=== PATIENT | female | born 1980 | race Caucasian/White ===

== ENCOUNTER 2016-11-01 08:09 | Inpatient (IN) | payer OTHER ==
--- NOTE | ~2016-11-01 | PN ---
Unit #: [id number] #: [id number] Patient: ARETHA HUMPHREY [id number] [facility] [address] [place] [address] [id number] I MR#: [id number] NAME: ARETHA HUMPHREY. ROOM: P176 Age: 36 Sex: F Admission Date: 11/01/2016 : 1980 Attending Physician: Roman Weldon M.D. Admitting Physician: Roman Weldon M.D. Primary Care Physician: Primary Care Physician Amanda JOSE PROGRESS NOTES DATE November 02, 2016 DISCUSSION Ms. Humphrey is a 36-year-old white female, with mood disorder and substance abuse, who was seen today and chart was reviewed and the case was discussed with the staff. She was seen to be anxious, withdrawn, depressed, and remained seclusive to herself. Meanwhile, she has been cooperative with the treatment recommendations and she has been taking the medications and tolerating them fairly well with no reported side effects. MENTAL STATUS EXAMINATION Middle-aged white female, who was casually dressed with fair personal hygiene and appears to be in no acute distress or discomfort. The patient was awake and alert with intact orientation. Her mood was anxious with a congruent affect. She reports having suicidal ideation but denies any homicidal ideations. Her insight and judgment remain slightly impaired. TREATMENT PLAN 1. We will continue her on her current medications and treatment protocol, and will monitor her response to the medications, and make further adjustments as needed. 2. We will continue to followup. Dictated by... Malorie Barcenas/todd TD: 11/03/2016 06:34 JOB #: [id number] Unit #: [id number] #: [id number] Patient: ARETHA HUMPHREY PEAJEFF PROGRESS NOTES Page 1 of 1 X Roman Weldon MD PROGRESS NOTE
--- NOTE | ~2016-11-01 | PN ---
Unit #: [id number] #: [id number] Patient: ARETHA HUMPHREY [id number] [facility] [address] [place] [address] [id number] I MR#: [id number] NAME: ARETHA HUMPHREY. ROOM: P176 Age: 36 Sex: F Admission Date: 11/01/2016 : 1980 Attending Physician: Roman Weldon M.D. Admitting Physician: Roman Weldon M.D. Primary Care Physician: Primary Care Physician Amanda TORRE NOTES DATE November 03, 2016 DISCUSSION Ms. Humphrey is a 36-year-old white female, who was seen today and chart was reviewed and the case was discussed with the staff. She was lying in the bed and was in distress and discomfort, unkempt, disheveled, and hardly able to carry on any meaningful conversation but she stated that she is starting to feel somewhat better; however, does appear to be actively detoxing. Meanwhile, she has been taking the medications and tolerating them fairly well with no reported side effects. MENTAL STATUS EXAMINATION Middle-aged white female, who was casually dressed with fair personal hygiene and appears to be in no acute distress or discomfort. She was awake and alert on interaction with intact orientation. Her mood was anxious with a congruent affect. She denies any suicidal or homicidal ideations. Her insight and judgment remain slightly impaired. TREATMENT PLAN 1. We will continue her on her current medications and treatment protocol, and will monitor her response to the medications, and make further adjustments as needed. 2. We will continue to followup. Dictated by... Malorie Barcenas/todd TD: 11/03/2016 12:48 JOB #: [id number] Unit #: [id number] #: [id number] Patient: ARETHA HUMPHREY DAMON PROGRESS NOTES Page 1 of 1 X Roman Weldon MD PROGRESS NOTE
--- NOTE | ~2016-11-01 | PN ---
Unit #: [id number] #: [id number] Patient: ARETHA HUMPHREY [id number] [facility] [address] [place] [address] [id number] I MR#: [id number] NAME: ARETHA HUMPHREY. ROOM: P176 Age: 36 Sex: F Admission Date: 11/01/2016 : 1980 Attending Physician: Roman Weldon M.D. Admitting Physician: Roman Weldon M.D. Primary Care Physician: Primary Care Physician Amanda JOSE PROGRESS NOTES DATE OF SERVICE 11/05/2016 DISCUSSION Ms. Humphrey is a 36-year-old white female who was seen today. Chart was reviewed and case was discussed with the staff. She appears to be doing better and reported that she fears that she is coming out of the detox. Meanwhile, she has been cooperative with the treatment recommendations and has been taking the medications and tolerating them fairly well with no reported side effects. MENTAL STATUS EXAMINATION Young white female who is casually dressed with fair personal hygiene, appears to be in no acute distress or discomfort. She was awake and alert on interaction with intact orientation. Her mood is anxious with a congruent affect. She denies any suicidal or homicidal ideations, but her insight and judgment remain slightly impaired. TREATMENT PLAN 1. We will continue her on her current medications and treatment protocol. We will monitor her response to the medications and make further adjustments as needed. 2. We will continue to follow up. Dictated by... Roman Weldon M.D. IAA/alisong TD: 11/05/2016 10:12 JOB #: [id number] Unit #: [id number] #: [id number] Patient: ARETHA HUMPHREY PROGRESS NOTES Page 1 of 1 X Roman Weldon MD X PROGRESS NOTE
--- NOTE | ~2016-11-01 | HP ---
Unit #: [id number] #: [id number] Patient: FREDA HUMPHREY [id number] [place] [address] [id number] I MR#: [id number] NAME: FREDA HUMPHREY. ROOM: P176 Age: 36 Sex: F Admission Date: 11/01/2016 : 1980 Attending Physician: Roman Weldon M.D. Admitting Physician: Roman Weldon M.D. Primary Care Physician: Primary Care Physician No HISTORY AND PHYSICAL HISTORY OF PRESENT ILLNESS Freda is a 36 year old admitted to [facility] because of her polysubstance abuse which includes IV heroin. PAST MEDICAL HISTORY 1. Long history of opioid abuse to include IV heroin 2. Hepatitis C. 3. 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 ALLERGIES No known drug allergies. SOCIAL HISTORY Smokes one-half pack per day. Denies alcohol. Admits to a long history of illicit substance abuse to include IV heroin. FAMILY HISTORY Medically noncontributory. REVIEW OF SYSTEMS CONSTITUTIONAL: No fever or chills. HEENT: Denies any sore throat, ear pain or runny nose. CARDIOVASCULAR: Denies chest pain, irregular heart rhythm or palpitations. CHEST: Denies shortness of breath or cough. No hemoptysis. GASTROINTESTINAL: Denies nausea, vomiting, diarrhea or chronic constipation. ENDOCRINE: Denies history of increased thirst or urination. No recent significant weight loss or gain. GENITOURINARY: Denies dysuria, frequency, or hematuria. SKIN: Denies any rashes. HEMATOLOGIC: Denies history of increased bleeding or bruising. MUSCULOSKELETAL: Denies any hot, swollen joints. No generalized muscle pain. NEUROLOGIC: Denies problems with vision or speech. No frequent, severe headaches. No numbness, tingling or weakness in any extremities. Denies loss of bladder or bowel control. CURRENT MEDICATIONS Detox protocol Unit #: [id number] #: [id number] Patient: FREDA HUMPHREY PHYSICAL EXAMINATION GENERAL: Alert, thin, in no apparent distress. VITAL SIGNS: Blood pressure 117/74, heart rate 80, respirations 16, temperature 98.6. WEIGHT: 125 pounds. HEIGHT: 4'11". SKIN: Warm and dry without rash or lesion. HEENT: Normocephalic. TMs not viewed. Oral and nasal passages clear. Conjunctivae clear. Pupils equal, round and reactive to light and accommodation. Extraocular movements intact. NECK: Supple without lymphadenopathy or thyromegaly. HEART: Rate and rhythm is regular with a one to two over six diastolic murmur. LUNGS: Clear. ABDOMEN: Soft, nontender. : Not done. EXTREMITIES: No evidence of cyanosis, clubbing or edema. Moves all extremities without focal deficit. NEUROLOGICAL: Grossly within normal limits. Cranial Nerves: II: Visual peña are intact. III, IV AND : Extraocular movements are intact. Pupils are equal, round and reactive to light. V: Facial sensation is grossly normal. VII: Facial movements and expression are normal. VIII: Auditory acuity grossly intact. IX, X: Uvula is midline. Phonation is normal. XI: Patient shrugs shoulders and turns head normally. XII: Tongue protrudes in the midline. Sensory and Motor Function: Sensory and motor sensation is grossly normal. Motor: moves all extremities well. Coordination: Gait is normal. Deep Tendon Reflexes: Intact. IMPRESSION 1. Psychiatric admission. 2. Long history of opioid abuse to include IV heroin. 3. Hepatitis C. 4. History of hepatitis B. 5. The patient reports aortic and pulmonic valve replaced at age [age] (?). RECOMMENDATIONS PSYCHIATRIC: Per psychiatrist. MEDICAL: I see no contraindications to participating in facility's activities. MEDICAL PROGNOSIS Good. MEDICAL CONDITION Stable. Dictated by... Ayesha Yu P.A.-C. for Gloria Galaviz M.D. Unit #: [id number] #: [id number] Patient: FREDA HUMPHREY JOSE/nikky TD: 11/01/2016 20:37 JOB #: [id number] HISTORY AND PHYSICAL X Ayesha Yu HISTORY AND PHYSICAL
--- NOTE | ~2016-11-01 | PA ---
Unit #: [id number] #: [id number] Patient: ARETHA HUMPHREY [id number] [facility] [address] [place] [address] [id number] I MR#: [id number] NAME: ARETHA HUMPHREY ROOM: P176 Age: 36 Sex: F Admission Date: 11/01/2016 : 1980 Date of Assessment: 11/01/2016 Attending Physician: Roman Weldon M.D. Admitting Physician: Roman Weldon M.D. Primary Care Physician: Primary Care Physician No PSYCHIATRIC ASSESSMENT DATE OF SERVICE 11/01/2016. IDENTIFYING DATA Ms. Humphrey is a 36-year-old single white female who is a resident of [place], [place] and was self-referred to the hospital on a voluntary basis. CHIEF COMPLAINT "I had 11-month sober and I relapsed on heroin IV." HISTORY OF PRESENT ILLNESS Ms. Humphrey is a 36-year-old white female with history of substance abuse and dependence, who was self-referred to the hospital. Upon presentation, she stated that she saw her consular officer last month and she had 11 month sobriety and then she ended up relapsing and "I told him I f-word'd up and he told me to come here. I've been having suicidal thoughts because of my relapse. I need to get my thoughts together. I know I am f-word'd up. I know it is me and not anyone else as I talked him a program. I have been using the needle for 1 month strength. I have been thinking I need to get help. I kill myself." She does report increasing depression, anxiety, agitation, irritability, feelings of hopelessness and helplessness, and suicidal ideation and reports having suicidal thoughts over the last month and denies any homicidal ideation and reports she currently has been having suicidal ideations, thoughts of taking an overdose on heroin and was seen to be danger to self and was unable to contract for safety and as such, recommendation for inpatient level of care was recommended. SUBSTANCE ABUSE HISTORY The patient has history of experimentation with alcohol, cannabis, opioids, and amphetamines, however, opioids currently appear to be her drug of choice as she reports that she has been using 0.5 to 1 g of heroin intravenously. PAST PSYCHIATRIC HISTORY The patient has had history of chemical dependency treatment at [facility] and review of the medical records indicate that currently she is not active in any treatment program, is not seeing a psychiatrist, and not taking any psychotropic medications. PAST MEDICAL HISTORY Unit #: [id number] #: [id number] Patient: ARETHA HUMPHREY Significant for hepatitis B and hepatitis C. ALLERGIES No known medication allergies. CURRENT MEDICATIONS None. PERSONAL AND SOCIAL HISTORY A 36-year-old white female who reports that she is single, unemployed, and lives at home with her mother and has fairly decent social support system. She has ongoing legal issues and is currently on probation. MENTAL STATUS EXAMINATION Young white female who was casually dressed with fair personal hygiene, appears to be in no acute distress or discomfort. She was awake and alert on interaction with intact orientation to time, place, and person. Her mood was anxious and depressed with a congruent affect. Her speech was slow and goal directed. Her thought processes were disorganized with some looseness of associations and flight of ideas and suicidal ideations. Her insight and judgment remain significantly impaired. DIAGNOSTIC IMPRESSION Psychiatric: Opioid dependence, moderate and acute withdrawals; opioid-induced mood disorder. Medical: Hepatitis B and hepatitis C. Stressors: Moderate psychosocial stressors. TREATMENT PLAN 1. The patient has presented with a history of mood disorder and substance abuse, and has been decompensating and will need inpatient hospitalization for safety and stabilization. We will start her on detox protocol. We will closely monitor for any worsening withdrawal symptoms. 2. Supportive therapy was provided to the patient. 3. Safe, structured, and nourishing environment will be provided. ESTIMATED LENGTH OF STAY 5 to 7 days. ABILITY TO HELP SELF Limited. WILLINGNESS TO HELP SELF The patient appears to be willing to help self. STRENGTHS 1. Communicative. 2. Cooperative. PROBLEMS 1. Chronic chemical dependency. 2. Chronic dysphoric symptoms. 3. Poor social support system. DISCHARGE CRITERIA This will be contingent upon the patient's ability to go through detox without having any significant withdrawal symptoms as well as her ability to stay safe to herself, particularly after discharge from the hospital. Unit #: [id number] #: [id number] Patient: ARETHA HUMPHREY Dictated by... Malorie Barcneas/helena TD: 11/02/2016 22:58 JOB #: [id number] PSYCHIATRIC ASSESSMENT Page 1 of 1 X Roman Weldon MD PSYCHIATRIC ASSESSMENT
--- NOTE | ~2016-11-01 | PN ---
Unit #: [id number] #: [id number] Patient: ARETHA HUMPHREY [id number] [facility] [address] [place] [address] [id number] MR#: [id number] NAME: ARETHA HUMPHREY. ROOM: P176 Age: 36 Sex: F Admission Date: 11/01/2016 : 1980 Attending Physician: Roman Weldon M.D. Admitting Physician: Roman Weldon M.D. Primary Care Physician: Primary Care Physician Amanda TORRE NOTES DATE November 03, 2016 DISCUSSION Ms. Humphrey is a 36-year-old white female, with substance abuse and mood disorder, who was seen today and chart was reviewed and the case was discussed with the staff, who reports that the patient has been detoxing hard. She has been anxious, restless, unkempt, disheveled, and seclusive to herself, and has not been able to come out of her bed, and has been describing herself to being in discomfort, neither has she been able to take care of her personal hygiene. She has not shown any agitation or aggression and she has been taking medications and tolerating them fairly well MENTAL STATUS EXAMINATION Young white female, who was casually dressed with fair personal hygiene and appears to be in no acute distress or discomfort. The patient was awake and alert on interaction with intact orientation. Her mood is anxious with a congruent affect. She denies any suicidal or homicidal ideations. Her insight and judgment remain slightly impaired. TREATMENT PLAN 1. We will continue her on her current medications and treatment protocol, and will monitor her response, and make further adjustments as needed. 2. We will continue to followup. Dictated by... Malorie Barcenas/todd TD: 11/05/2016 06:30 JOB #: [id number] Unit #: [id number] #: [id number] Patient: ARETHA HUMPHREY DAMON PROGRESS NOTES Page 1 of 1 X Roman Weldon MD PROGRESS NOTE
--- NOTE | ~2016-11-01 | DS ---
Unit #: [id number] #: [id number] [facility]: [facility] [id number] [facility] [address] [place] [address] [id number] I MR#: [id number] NAME: ARETHA HUMPHREY. ROOM: P176 Age: 36 Sex: F Admission Date: 11/01/2016 : 1980 Discharge Date: 11/06/2016 Attending Physician: Roman Weldon M.D. DISCHARGE SUMMARY IDENTIFYING DATA Ms. Humphrey is a 36-year-old single white female who is a resident of [place], [place] and was self-referred to the hospital on a voluntary basis. DISCHARGE DIAGNOSES Psychiatric: Opioid dependence, moderate and acute withdrawals; opioid-induced mood disorder. Medical: Hepatitis B, hepatitis C. Stressors: Moderate psychosocial stressors. HISTORY OF PRESENT ILLNESS Please see initial psychiatric evaluation for details. PAST PSYCHIATRIC HISTORY Please see initial psychiatric evaluation for details. PAST MEDICAL HISTORY Please see initial psychiatric evaluation for details. HOSPITAL COURSE The patient was admitted to the adult chemical dependency unit at [facility] mahnaz Beltrán and was oriented to the hospital environment. Routine p.r.n. medications were initiated, and she was started on the detox protocol and was closely monitored. She had a rather complicated course as she was in her bed most of the first few days and was actively vomiting and was unkempt, disheveled, and unable to take care of herself or perform activities of daily living or even feed herself or come out and go to the day room for meals and as such, medications were maintained and was given on a regular basis, but she slowly started coming out and was seen to be doing much better and was cooperative with treatment recommendations, and as such, it was decided that she will be discharged home and will continue treatment on an outpatient basis. DISCHARGE MEDICATIONS None. DISCHARGE CONDITION Stable. PROGNOSIS Fair. Unit #: [id number] #: [id number] Patient: ARETHA HUMPHREY Dictated by... Malorie Barcenas/perezl TD: 11/06/2016 10:09 JOB #: [id number] DISCHARGE SUMMARY Page 1 of 1 X Roman Weldon MD DISCHARGE SUMMARY
--- NOTE | ~2016-11-01 | TN ---
Unit #: [id number] #: [id number] Patient: ARETHA HUMPHREY [id number] [place] [address] [id number] I MR#: [id number] NAME: ARETHA HUMPHREY. ROOM: P176 Age: 36 Sex: F Admission Date: 11/01/2016 : 1980 Discharge Date: 11/06/2016 Attending Physician: Roman Weldon M.D. Primary Care Physician: Primary Care Physician No LOC TRANSFER NOTE DATE OF SERVICE: 11/09/2016 HISTORY OF PRESENT ILLNESS Ms. Humphrey is a 36-year-old single white female with history of opioid dependence and mood disorder, who has stepped down to the outpatient treatment program from the adult inpatient chemical dependency unit at [facility], where she was hospitalized under my care from 11/01/2016 to 11/06/2016, and was medically detox from heroin, which has been her drug of choice and she was sent home and asked to come to the outpatient treatment program. The patient reports she got out of the hospital and went home, has been staying with her mother, and has been safe and sober, but she reports that she still has been struggling with the craving and constantly has been having cravings, but she has not given in. She also reports doing fairly well on her mood and smiling, and had a positive body language, and denies being depressed or having any suicidal ideations. SUBSTANCE ABUSE HISTORY The patient reports opiates particularly heroin to be her drug of choice and she has been clean as of 11/01/2016. PAST PSYCHIATRIC HISTORY The patient has had history of inpatient and outpatient psychiatric and chemical dependency treatment, [facility], and currently, she is not taking any psychotropic medications. PAST MEDICAL HISTORY No acute or chronic medical illnesses. ALLERGIES No known medication allergies. CURRENT MEDICATIONS None. PERSONAL AND SOCIAL HISTORY A 36-year-old single white female who reports that she lives at home with her mother and has fairly decent social support system. MENTAL STATUS EXAMINATION Young white female who was casually dressed with a fair personal hygiene, appears to be in no acute distress or discomfort. She was awake and alert on interaction with intact orientation. Her mood was anxious and depressed with a congruent affect. Her speech is slow and restricted in Unit #: [id number] #: [id number] Patient: ARETHA HUMPHREY. She denies any suicidal or homicidal ideations, and also denies any auditory or visual hallucinations. Her insight and judgment remain slightly impaired. DIAGNOSTIC IMPRESSION Psychiatric: Opioid dependence, moderate, opioid-induced mood disorder. Medical: None. Stressors: Moderate psychosocial stressors. TREATMENT PLAN 1. The patient has presented with a history of substance abuse and mood disorder and has been decompensating. We will recommend enrolling her into the outpatient treatment program and encouraged her to participate in therapy groups and to practice sobriety. 2. Supportive therapy was provided to the patient. ESTIMATED LENGTH OF STAY 14 to 21 days. ABILITY TO HELP SELF Limited. WILLINGNESS TO HELP SELF The patient appears to be willing to help self. STRENGTHS 1. Communicative. 2. Cooperative. PROBLEM LIST 1. Chronic dysphoric symptoms. 2. Chronic chemical dependency. 3. Poor social support system. DISCHARGE CRITERIA This will be contingent upon the patient's ability to show resolution of her depression and anxiety and her ability to stay safe and sober, particularly after discharge from the program. Dictated by... Roman Weldon M.D. AB/helena TD: 11/10/2016 03:13 JOB #: [id number] LOC TRANSFER NOTE Page 1 of 1 X Roman Weldon MD X LOC TRANSFER NOTE
[~2016-11-01 08:09] MED LIST: DOXYCYCLINE HY100 M1 PO; NO MEDICATIONS; PHENERGAN/CODEIN5 ML PO; TESSALON200 MG PO; ULTRAM PO
[2016-11-02 09:42] LABS: BASOPHIL# 0.1 X10e3 (0-0.3); BASOPHIL% 1.2 % (0-2.5); EOSINOPHIL# 0.2 X10e3 (0-0.7); EOSINOPHIL% 3.2 % (0.0-7.0); HEMATOCRIT 39.3 % (35.0-45.0); LYMPHOCYTE# 1.7 X10e3 (1.0-3.5); LYMPHOCYTE% 34.3 % (17.0-45.0); MEAN CELL VOLUME 89.7 FL (83-96); MEAN CORPUSCULAR HEMOGLOBIN 29.6 PG (28-34); MEAN PLATELET VOLUME 8.7 FL (6.5-11.5); MONOCYTE# 0.7 X10e3 (0-1.0); MONOCYTE% 13.8 % (3.0-12.0); NEUTROPHIL# 2.4 X10e3 (1.5-7.1); NEUTROPHIL% 47.5 % (40-75); PLATELET COUNT 266 X10e3 (140-420); RED BLOOD COUNT 4.38 X10e (3.90-5.30); RED CELL DISTRIBUTION WIDTH 13.7 % (11.0-15.5)
[2016-11-02 09:44] LABS: DIFF IND NO
[2016-11-02 09:49] LABS: URINE APPEARANCE CLEAR; URINE BILIRUBIN NEG (NEG); URINE BLOOD NEG (NEG); URINE COLOR YELLOW; URINE GLUCOSE NEG (NEG); URINE KETONE NEG (NEG); URINE LEUKOCYTE ESTERASE NEG (NEG); URINE NITRATE NEG (NEG); URINE PROTEIN NEG (NEG); URINE SPECIFIC GRAVITY 1.021 (1.003-1.035)
[2016-11-02 09:58] LABS: AMPHETAMINE POS (NEG); BARBITURATES NEG (NEG); BENZODIAZEPINES NEG (NEG); COCAINE NEG (NEG); MARIJUANA NEG (NEG); OPIATES POS (NEG); TRICYCLIC ANTIDEPRESSANTS NEG (NEG); U METHADONE NEG (NEG)
[2016-11-02 10:23] LABS: THYROID STIMULATING HORMONE 0.68 uIU/ml (0.34-5.60)
[2016-11-02 10:30] LABS: FREE THYROXIN (T4) 0.92 ng/dL (0.58-1.64)
[2016-11-02 10:54] LABS: ALKALINE PHOSPHATASE 85 U/L (32-92); ALT (SGPT) 128 U/L (10-40); AST (SGOT) 89 U/L (10-42); BILIRUBIN,TOTAL 0.4 mg/dL (0.2-2.0); BLOOD UREA NITROGEN 12 mg/dL (9-23); BUN/CREATININE RATIO 13.33; CALCIUM SERUM 8.8 mg/dL (8.4-10.2); CARBON DIOXIDE 25 mmol/L (22-31); CHLORIDE 105 mmol/L (100-111); CREATININE SERUM 0.9 mg/dL (0.6-1.4); GLOM FILT RATE Estimated ABOVE60 mL/min (>60); GLUCOSE FASTING 81 mg/dL (70-110); POTASSIUM 4.3 mmol/L (3.5-5.1); PROTEIN TOTAL SERUM 6.4 g/dL (6.0-8.3); SODIUM 136 mmol/L (135-145)
[2016-11-17] MEDS ORDERED: [UNRECOGNIZED DRUG - REMARK] (20:23)
== END 2016-11-06 10:00 | disposition home or self-care (01) | DRG 897 ==
LOC: POF 08:09 → P1E 11:09
PROVIDERS: Psychiatry & Neurology Psychiatry
DX: F11.23 Opioid dependence with withdrawal (principal); F11.24 Opioid dependence with opioid-induced mood disorder; F17.210 Nicotine dependence, cigarettes, uncomplicated; Z86.19 Personal history of other infectious and parasitic diseases
CPT/HCPCS: 80053; 80307; 81003; 84439; 84443; 84703; 85025; 86592

== ENCOUNTER 2016-11-17 20:49 | Emergency (ER) | payer OTHER ==
--- NOTE | ~2016-11-17 | CR230 ---
[facility] A Service of [facility] & [facility] RADIOLOGY TEXT RESULTS PATIENT: ARETHA HUMPHREY LOCATION: SED : [birth year] UNIT #: [id number] AGE: [address]: Juan Manuel Panda DO SEX: F ORDER DR: [id number] [address] [address] [id number] MR#: [id number] Acc #: [id number] NAME: ARETHA HUMPHREY : 1980 SEX: F STUDY DATE/TIME: 11/17/2016 21:03 UNIT: SED ROOM: STUDY DESCRIPTION: CR Shoulder Min 2 View Rt Attending Physician: Juan Manuel Panda D.O. Ordering Physician: Juan Manuel Panda D.O. Primary Care Physician: Primary Care Physician No MEDICAL IMAGING REPORT This report is preliminary unless electronic signature is present. EXAM Right shoulder radiograph. INDICATIONS Pain and swelling. FINDINGS 3 views of the right shoulder without comparison. There is no acute fracture or dislocation. Alignment is anatomic. IMPRESSION Negative right shoulder. Dictated by... Brennen Champagne M.D. THIS IS AN ELECTRONICALLY VERIFIED REPORT Brennen Champagne M.D. at 11/18/2016 3:26 PM Vlad/santana TD: 11/18/2016 00:24 JOB #: [id number] MEDICAL IMAGING REPORT Page 1 of 1
--- NOTE | ~2016-11-17 | US139 ---
[facility] A Service [facility] RADIOLOGY TEXT RESULTS PATIENT: ARETHA HUMPHREY LOCATION: SED : [birth year] UNIT #: [id number] AGE: [address]: Juan Manuel Panda DO SEX: F ORDER DR: [id number] [place] [id number] E MR#: [id number] Acc #: [id number] NAME: ARETHA HUMPHREY : 1980 SEX: F STUDY DATE/TIME: 11/17/2016 21:17 UNIT: SED ROOM: STUDY DESCRIPTION: US UE Veins Complete Mauro Stdy Attending Physician: Juan Manuel Panda D.O. Ordering Physician: Juan Manuel Panda D.O. Primary Care Physician: Primary Care Physician No MEDICAL IMAGING REPORT This report is preliminary unless electronic signature is present. EXAM Bilateral upper extremity venous ultrasound HISTORY Bilateral upper extremity pain for 3 days. No injury. TECHNIQUE Venous ultrasound examination of both upper extremities was performed using grayscale, spectral Doppler and color flow Doppler imaging. FINDINGS The examination is negative. There is no evidence of deep venous thrombus within the bilateral internal jugular veins, subclavian veins, axillary veins or brachial veins. No superficial venous thrombus is seen within the cephalic or basilic veins. IMPRESSION Negative examination. No evidence of upper extremity venous thrombosis. Dictated by... Tre Alcantar M.D. THIS IS AN ELECTRONICALLY VERIFIED REPORT Tre Alcantar M.D. at 11/18/2016 2:30 PM DFL/psc TD: 11/18/2016 00:47 JOB #: [id number] MEDICAL IMAGING REPORT [facility] A Service [facility] RADIOLOGY TEXT RESULTS PATIENT: ARETHA HUMPHREY LOCATION: SED : [birth year] UNIT #: [id number] AGE: [address]: Juan Manuel Panda DO SEX: F ORDER DR: Page 1 of 1
--- NOTE | ~2016-11-17 | CR139 ---
[facility]. [facility] A Service of [facility] & [facility] RADIOLOGY TEXT RESULTS PATIENT: ARETHA HUMPHREY LOCATION: SED : [birth year] UNIT #: [id number] AGE: [address]: Juan Manuel Panda DO SEX: F ORDER DR: [id number] [address] [address] [id number] E MR#: [id number] Acc #: [id number] NAME: ARETHA HUMPHREY : 1980 SEX: F STUDY DATE/TIME: 11/17/2016 21:03 UNIT: SED ROOM: STUDY DESCRIPTION: CR Hand 2 Views Rt Attending Physician: Juan Manuel Panda D.O. Ordering Physician: Juan Manuel Panda D.O. Primary Care Physician: Primary Care Physician No MEDICAL IMAGING REPORT This report is preliminary unless electronic signature is present. EXAM Right hand, 2 views, 11/17/2016 INDICATIONS Right hand pain. Right hand swelling status post IV drug injection. FINDINGS 2 views of the right hand without comparison. There is no acute fracture or dislocation. Alignment is anatomic. No osseous abnormalities. IMPRESSION Negative right hand. Dictated by... Brennen Champagne M.D. THIS IS AN ELECTRONICALLY VERIFIED REPORT Brennen Champagne M.D. at 11/18/2016 3:25 PM C/santana TD: 11/18/2016 00:16 JOB #: [id number] MEDICAL IMAGING REPORT Page 1 of 1
--- NOTE | ~2016-11-17 | CR229 ---
[facility] A Service of [facility] & [facility] RADIOLOGY TEXT RESULTS PATIENT: ARETHA HUMPHREY LOCATION: SED : [birth year] UNIT #: [id number] AGE: [address]: Juan Manuel Panda DO SEX: F ORDER DR: [id number] [address] [address] [id number] E MR#: [id number] Acc #: [id number] NAME: ARETHA HUMPHREY : 1980 SEX: F STUDY DATE/TIME: 11/17/2016 21:03 UNIT: SED ROOM: STUDY DESCRIPTION: CR Shoulder Min 2 View Lt Attending Physician: Juan Manuel Panda D.O. Ordering Physician: Juan Manuel Panda D.O. Primary Care Physician: Primary Care Physician No MEDICAL IMAGING REPORT This report is preliminary unless electronic signature is present. EXAM Left shoulder. INDICATION Left shoulder pain. 4-days duration. IV drug injection over the shoulder. FINDINGS 3 views of the left shoulder without comparison. There is no acute fracture or dislocation. The acromioclavicular and glenohumeral articulations are within normal limits. IMPRESSION Negative left shoulder. Dictated by... Brennen Champagne M.D. THIS IS AN ELECTRONICALLY VERIFIED REPORT Brennen Champagne M.D. at 11/18/2016 3:26 PM SANJAY/fina TD: 11/18/2016 00:22 JOB #: [id number] MEDICAL IMAGING REPORT Page 1 of 1
[~2016-11-17 20:49] MED LIST changes: +[UNRECOGNIZED DRUG - REMARK]
== END 2016-11-17 22:44 | disposition home or self-care (01) ==
LOC: SED 20:49
DX: M79.641 Pain in right hand (principal); F17.200 Nicotine dependence, unspecified, uncomplicated; Z87.440 Personal history of urinary (tract) infections; Z95.1 Presence of aortocoronary bypass graft
CPT/HCPCS: 73030; 73120; 93970; 99284

== ENCOUNTER 2016-11-29 19:30 | Emergency (ER) | payer OTHER | END 2016-11-29 19:58 | disposition left against medical advice (07) | LOC: CED 19:30 | DX: Z53.21 Procedure and treatment not carried out due to patient leaving prior to being seen by health care provider (principal) ==